=== PATIENT | male | born 1990 | race Caucasian/White ===

== ENCOUNTER 2021-01-20 10:08 | Outpatient (RCR) | payer BC, SELFPAY ==
--- NOTE | 2021-01-20 11:25 | OTOPEVAL ---
Thank you for referring Pedro Velazquez to [facility].? The patient is scheduled to be seen for therapy? ____x/week for ___ weeks. Please review, sign, date and return this plan of care SCOTT. I agree with and certify that the following plan of care is medically necessary. Referring Physician Date Admitting Provider: Attending Provider: Jose De Jesus Thomas DO Referring Provider: *OT Outpatient Evaluation Start: 01/20/21 07:39 Freq: Status: Active Protocol: Document 01/20/21 10:07 [facility] (Rec: 01/20/21 11:18 [facility] [id number]) Therapy Assessment Status Assessment Status Assessment Status Evaluation Evaluation Information Problem Diagnosis Decreased ROM, decreased strength Onset 01/02/21 Cause unspecified acquired deformity of hand Subjective Information Patient reports that he slid Query Text:As Reported By Patient/ down a rope that caused lopez Family to bilateral palms. Patient reports that he went to the ER as well as followed up with his doctor. He reports that over the last day or 2 he has been keeping the wounds open. 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 Patient arrives to OT with wounds open to air and ointment applied. Patient is unable to drive, open containers, perform box shook patcher and participate in recreational activities since the injury. Quick DASH: 75.0% Prior Level of Function Activity Level (Last 3 Months) Occupation food prep worker- packaging Hand Dominance Right Activity of Daily Living Ability Independent Indoor/Home Mobility Independent Community Mobility Independent Stairs Ability Independent Functional Cognition (Planning, Shopping Independent , Taking Medications) Cooking Yes Cleaning Yes Laundry Yes Shopping Yes Driving Yes Pain Assessment Timing of Pain Assessment Timing of Pain Assessment Assessment Pain Scale Pain Scale Used
--- NOTE | 2021-02-24 16:32 | PCOTNOTE ---
Patient seen for OT evaluation only and failed to show up to follow up appointments. Patient is discharged from skilled OT services. MS
== END 2021-01-20 13:27 | disposition home or self-care (01) ==
LOC: CHSOT 10:08
PROVIDERS: PCP Family Medicine; Visit Provider Family Medicine
DX: M21.949 Unspecified acquired deformity of hand, unspecified hand (principal); Z72.0 Tobacco use
CPT/HCPCS: 97110; 97165

== ENCOUNTER 2024-08-03 12:42 | Outpatient (CLI) | payer OTHER, SELFPAY ==
--- NOTE | ~2024-08-03 | US_ITS ---
EXAMINATION: US soft tissue groin RT DATE: 08/03/2024 13:05 INDICATION: Unilateral right inguinal hernia without obstruction. Palpable lump at the right groin. TECHNIQUE: Multiple grayscale and Doppler ultrasound images of the region of concern at the right sujit in were obtained. COMPARISON: None FINDINGS: Small right inguinal hernia containing fat and peristalsing bowel which increases slightly in size wi th Valsalva. IMPRESSION: 1. Small right inguinal hernia contains both fat and peristalsing bowel. Reviewed, dictated and finalized at location A.
== END 2024-08-03 12:43 | disposition home or self-care (01) ==
LOC: CHSIMG 12:46
PROVIDERS: PCP Nurse Practitioner Family; Visit Provider Nurse Practitioner Family
DX: K40.90 Unilateral inguinal hernia, without obstruction or gangrene, not specified as recurrent (principal)
CPT/HCPCS: 76882